=== PATIENT | female | born 1985 | race Caucasian/White ===

== ENCOUNTER 2017-09-02 21:52 | Inpatient (IN) | payer BC ==
--- NOTE | 2017-09-02 23:11 | CT ---
CERVICAL SPINE CT NONCONTRAST: Indication: Post-traumatic pain, injury. FINDINGS: NO fracture or subluxation. Craniocervical junction is intact. There is mild reverse of normal cervic al curvature which may be positional. Correlate clinically. IMPRESSION: No acute osseous abnormality of the cervical spine. POS: [facility]
[2017-09-02] MEDS ORDERED: Lidocaine 1% w/Epinephrine 1:100K 20 ML VIAL ONE (23:43)
[2017-09-03] MEDS ORDERED: Clindamycin/D5W 600 mg/50 ml Premix Bag ONE (00:02)
[2017-09-03 00:47] LABS: #Basophils 0.1 thou/uL (0.0-0.2); #Eosinphils 0.1 thou/uL (0.0-0.7); #Lymphocytes 1.7 thou/uL (1.20-3.40); #Monocytes 0.7 thou/uL (0.11-0.59); #Neutrophils 6.5 thou/uL (1.40-6.50); %Basophils 0.8 % (0.0-1.0); %Eosinophils 1.6 % (0.0-10.0); %Lymphocytes 18.9 % (21.0-51.0); %Monocytes 7.4 % (0.0-10.0); %Neutrophils 71.3 % (42.0-75.0); Hemoglobin 13.7 g/dL (12.0-16.0); Mean Corpuscular HGB CONC 34.3 g/dL (32.0-36.0); Mean Corpuscular Hemoglobin 31.8 pg (27.0-31.0); Mean Corpuscular Volume 92.8 fl (81.0-99.0); Mean Platelet Volume 6.4 fL (7.4-10.4); Platelet Count 363 thou/uL (130-400); RBC Distribution Width 11.1 % (11.5-14.5); Red Blood Cell (RBC) Count 4.31 mill/uL (4.20-5.40)
[2017-09-03 01:07] LABS: Anion Gap 15 mmol/L (10-20); BUN (Urea Nitrogen) 11 mg/dL (7.0-18.7); Calc. Creatinine Clearance 0 mL/min (70-130); Calcium 9.3 mg/dL (7.8-10.44); Carbon Dioxide 22 mmol/L (22-29); Chloride 107 mmol/L (98-107); Estimated GFR-MDRD Greater than 90; Glucose 96 mg/dL (70-105); Potassium 3.9 mmol/L (3.5-5.1); Sodium 140 mmol/L (136-145)
[2017-09-03] MEDS ORDERED: Dextrose 50% Abboject 50 ML SYRINGE SLOW IVP PRN (01:31)
[2017-09-03] MEDS ORDERED: Ondansetron HCl/PF 4 MG/2 ML Vial IVP PRN ×2 (01:31→13:36)
[2017-09-03] MEDS ORDERED: Dextrose 5% in Water 1,000 ML IV PRN (01:31)
[2017-09-03 01:37] VITALS: BMI 19.6
[2017-09-03 01:51] LABS: Magnesium 1.7 mg/dL (1.6-2.6); Phosphorus 2.9 mg/dL (2.3-4.7)
[2017-09-03] MEDS: Morphine 4 MG/ML VIAL SLOW IVP PRN ×3 (02:37→21:17)
[2017-09-03] MEDS: Sodium Chloride 0.9% 1,000 ML IV SCH ×5 (02:40→21:33)
[2017-09-03] MEDS: Acetaminophen 1,000 MG in Premix Bag 1 BAG IVPB SCH ×3 (05:29→18:14)
--- NOTE | 2017-09-03 07:38 | CT ---
NONCONTRAST FACIAL CT: Indication: Post-traumatic injury. Pain. FINDINGS: Mildly displaced fracture of the right body of the mandible is present. Fracture is mildly comminuted and traverses several teeth from the level of the right central incisor to the region of the canine/ pre molar with associated periapical lucencies. Overlying skin laceration is present. Temporomandibul ar joints maintain appropriate alignment. There are absent dentition of the maxilla bilaterally. Nate elate clinically. No displaced nasal bone fracture. Scattered paranasal sinus mucosal thickening. The orbital bryant are intact. Maxillary sinus wall is intact. IMPRESSION: Comminuted fracture of the right mandibular body with associated dental disruption as discussed above . There is overlying soft tissue laceration/contusion omental region. POS: [facility]
[2017-09-03] MEDS: Famotidine/PF 20 mg/2ml Vial SLOW IVP SCH ×2 (08:16→21:06)
[2017-09-03] MEDS: FLUoxetine HCl 10 MG CAP PO SCH (08:16)
[2017-09-03] MEDS: Polyethylene Glycol 3350 17 GM Packet PO SCH (08:16)
[2017-09-03] MEDS: Senokot S 8.6-50 MG TAB PO SCH ×2 (08:16→21:16)
[2017-09-03] MEDS ORDERED: Morphine 4 MG/ML VIAL IV SCH (08:45)
[2017-09-03] MEDS ORDERED: NORETHINDRONE AC ETH ESTRADIOL PO SCH (09:00)
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
[2017-09-03] MEDS ORDERED: Fentanyl 100 MCG/2 ML VIAL ONE ×3 (10:13→10:25)
[2017-09-03] MEDS ORDERED: Oxymetazoline HCl 0.05% ( 15 ML ) ONE (10:13)
[2017-09-03] MEDS ORDERED: HYDROmorphone 0.5 MG/0.5 ML SYRINGE ONE (10:25)
[2017-09-03] MEDS ORDERED: Chlorhexidine Gluconate 15 ML UDCUP SSP ONE (10:39)
[2017-09-03] MEDS ORDERED: Lidocaine 1% w/Epinephrine 1:100K 30 ML VIAL ONE (10:39)
[2017-09-03] MEDS ORDERED: Lidocaine 2% Jelly 5 ML TUBE ONE (11:00)
[2017-09-03] MEDS ORDERED: Promethazine HCl 25 MG/ML VIAL ONE (12:11)
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
[2017-09-03] MEDS ORDERED: Bacitracin Zinc Ointment 30 gm TUBE ONE (12:41)
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
[2017-09-03] MEDS ORDERED: Ketorolac Tromethamine 30 MG/ML VIAL ONE (13:28)
[2017-09-03] MEDS ORDERED: Promethazine HCl 25 MG/ML VIAL IM PRN (13:36)
[2017-09-03] MEDS ORDERED: Promethazine HCl 25 MG/ML VIAL SLOW IVP PRN (13:36)
[2017-09-03] MEDS ORDERED: HYDROmorphone 2 MG/ML VIAL SLOW IVP PRN (13:36)
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
[2017-09-03] MEDS ORDERED: Hydrocodone-Acetamin 15 ML UDCUP PO PRN (14:01)
[2017-09-03] MEDS: Clindamycin/D5W 900 MG in Premix Bag 1 BAG IVPB SCH ×2 (15:09→21:13)
[2017-09-03] MEDS ORDERED: Lidocaine 1% PF 5 ML VIAL ONE (15:39)
[2017-09-03] MEDS ORDERED: PHENYLEPHRINE-NS 100 MCG/ML 10 ML SYRINGE ONE (15:39)
[2017-09-03] MEDS ORDERED: Ondansetron HCl/PF 4 MG/2 ML Vial ONE (15:39)
[2017-09-03] MEDS ORDERED: PROPOFOL 200 MG/20 ML VIAL ONE (15:39)
[2017-09-03] MEDS ORDERED: Succinylcholine Chloride 20 MG/ML 10 ml SYRINGE FS ONE (15:39)
[2017-09-03] MEDS ORDERED: ePHEDrine/0.9% NaCl/PF SYRINGE 50 mg/10 ml ONE (15:39)
[2017-09-03] MEDS ORDERED: Dexamethasone 20 MG/5 ML VIAL ONE (15:39)
[2017-09-03] MEDS: Ibuprofen 100 MG/5 ML UDCUP PO SCH (18:15)
[2017-09-03] MEDS: Chlorhexidine Gluconate 15 ML UDCUP SSP SCH (21:13)
[2017-09-04] MEDS: Ibuprofen 100 MG/5 ML UDCUP PO SCH ×2 (00:37→06:50)
[2017-09-04] MEDS: Acetaminophen 1,000 MG in Premix Bag 1 BAG IVPB SCH ×2 (00:38→06:50)
[2017-09-04] MEDS: Sodium Chloride 0.9% 1,000 ML IV SCH (05:15)
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
[2017-09-04] MEDS: Clindamycin/D5W 900 MG in Premix Bag 1 BAG IVPB SCH (07:40)
[2017-09-04 08:02] VITALS: BP 115/65; TEMP 97.1
[2017-09-04] MEDS: FLUoxetine HCl 10 MG CAP PO SCH (09:31)
[2017-09-04] MEDS: Chlorhexidine Gluconate 15 ML UDCUP SSP SCH (09:31)
[2017-09-04] MEDS: Famotidine/PF 20 mg/2ml Vial SLOW IVP SCH (09:31)
[2017-09-04] MEDS: Senokot S 8.6-50 MG TAB PO SCH (09:39)
[2017-09-04] MEDS: Polyethylene Glycol 3350 17 GM Packet PO SCH (09:39)
--- NOTE | 2017-09-05 14:37 | EKG ---
Test Reason : PRE OP Blood Pressure : / mmHG Vent. Rate : 068 BPM Atrial Rate : 068 BPM P-R Int : 120 ms QRS Dur : 086 ms QT Int : 414 ms P-R-T Axes : 055 046 043 degrees QTc Int : 440 ms Normal sinus rhythm Normal ECG Confirmed by JAYDEN MELENDEZ MD ([id number]), non linear editor MAHESH LYLE ([id number]) on 09/05/2017 2:36:22 PM Referred By: ANDRES MELENDEZ Confirmed By:JAYDEN MELENDEZ MD
== END 2017-09-04 10:35 | disposition home or self-care (01) | DRG 159 ==
LOC: ERS 21:52 → SURG B 23:30
PROVIDERS: ADMIT Surgery; ATTEND Surgery
PROC: 0NSTXZZ Reposition Right Mandible, External Approach (ICD-10-PCS; principal; 2017-09-03)
PROC: 0CTX0Z1 Resection of Lower Tooth, Multiple, Open Approach (ICD-10-PCS; 2017-09-03)
PROC: 0CS Mouth and Throat, Reposition (ICD-10-PCS; 2017-09-03)
DX: S02.601B Fracture of unspecified part of body of right mandible, initial encounter for open fracture (principal); S02.5XXA Fracture of tooth (traumatic), initial encounter for closed fracture; S02.671A Fracture of alveolus of right mandible, initial encounter for closed fracture; K02.9 Dental caries, unspecified; F41.9 Anxiety disorder, unspecified
CPT/HCPCS: 70486; 72125; 76377; 80048; 83735; 84100; 85025; 86850; 86900; 86901; 93005; J0131; J1100; J1170; J1885; J2001; J2270; J2405; J2550; J2704; J3010; J3490

== ENCOUNTER 2019-02-19 19:30 | Inpatient (IN) | payer BC ==
[~2019-02-19 19:30] MED LIST: Bupivacaine 0.25% HCL 30 ML VIAL ONE
[2019-02-19] MEDS: Lactated Ringer's 1,000 ML IV SCH (22:15)
[2019-02-19] MEDS ORDERED: Promethazine HCl 25 MG/ML VIAL IM PRN (22:20)
[2019-02-19] MEDS ORDERED: hydrALAZINE 20 MG/ML VIAL SLOW IVP PRN (22:20)
[2019-02-19] MEDS ORDERED: Butorphanol Tartrate 1 MG/ML VIAL SLOW IVP PRN (22:20)
[2019-02-19] MEDS ORDERED: Ibuprofen 800 MG TAB PO PRN (22:20)
[2019-02-19] MEDS ORDERED: Misoprostol 200 MCG TAB PR PRN (22:20)
[2019-02-19] MEDS ORDERED: HYDROcodone/Acetaminophen 5/325 mg Tablet PO PRN ×2 (22:20)
[2019-02-19] MEDS ORDERED: NS / Oxytocin 40 units/1000ml 1,000 ML IV PRN (22:20)
[2019-02-19] MEDS ORDERED: Ondansetron PF 4 MG/2 ML Vial IVP PRN (22:20)
[2019-02-19] MEDS ORDERED: Diphenoxylate HCl/Atropine Tablet PO PRN ×2 (22:20)
[2019-02-19] MEDS ORDERED: Zolpidem Tartrate 5 MG TAB PO PRN (22:20)
[2019-02-19] MEDS ORDERED: Acetaminophen 500 MG TAB PO PRN (22:20)
[2019-02-19] MEDS ORDERED: Docusate 100 MG CAP PO PRN (22:20)
[2019-02-19] MEDS ORDERED: Lidocaine 1% (PF) 30 ML VIAL SC PRN (22:20)
[2019-02-19 22:34] LABS: Hemoglobin 10.8 g/dL (12.0-16.0); Mean Corpuscular HGB CONC 33.9 g/dL (32.0-36.0); Mean Corpuscular Hemoglobin 29.9 pg (27.0-31.0); Mean Corpuscular Volume 88.4 fL (78.0-98.0); Platelet Count 212 thou/uL (130-400); RBC Distribution Width 12.1 % (11.5-14.5); Red Blood Cell (RBC) Count 3.59 mill/uL (4.20-5.40)
[2019-02-19 22:45] VITALS: BMI 26.3
[2019-02-19] MEDS ORDERED: NS w/ Oxytocin 10 units 500 ML IV SCH ×2 (22:45)
[2019-02-19] MEDS: Misoprostol 100 MCG TAB VAG SCH (23:02)
[2019-02-19 23:13] LABS: Syphilis Antibody Nonreactive (Nonreactive); Syphilis Antibody Index 0.06 S/CO (<1.00 Non-Reactive)
[2019-02-20 01:22] LABS: HBSAg Index 0.15 S/CO (0-0.99); Hep B Surf Ag Non-Reactive S/CO (NonReactive)
[2019-02-20] MEDS: Misoprostol 100 MCG TAB VAG SCH ×3 (02:35→16:41)
[2019-02-20] MEDS ORDERED: Fentanyl 4 mcg/Bup 0.1% Cadd 100 ML ONE (05:43)
[2019-02-20] MEDS: Lactated Ringer's 1,000 ML IV SCH ×2 (06:20→07:50)
[2019-02-20] MEDS ORDERED: Terbutaline Sulfate 1 MG/ML VIAL ONE (07:14)
[2019-02-20] MEDS: NS / Oxytocin 40 units/1000ml 1,000 ML IV SCH ×2 (11:10→13:00)
[2019-02-20] MEDS ORDERED: Bisacodyl 10 MG SUPP PR PRN (12:05)
[2019-02-20] MEDS ORDERED: Zolpidem Tartrate 5 MG TAB PO PRN (12:05)
[2019-02-20] MEDS ORDERED: diphenhydrAMINE 25 MG CAP PO PRN (12:05)
[2019-02-20] MEDS ORDERED: Lanolin Ointment 7 GM TUBE TOP PRN (12:05)
[2019-02-20] MEDS ORDERED: Benzocaine-Menthol 82.5 ML CAN TOP PRN (12:05)
[2019-02-20] MEDS ORDERED: Preparation H Ointment 28 GM TUBE PR PRN (12:05)
[2019-02-20] MEDS ORDERED: Acetaminophen/Codeine 30-300mg Tablet PO PRN (12:05)
[2019-02-20] MEDS ORDERED: Adacel (T-DAP) 0.5 ML SYRINGE IM ONE (12:05)
[2019-02-20] MEDS ORDERED: Milk Of Magnesia 30 ML UDCUP PO PRN (12:05)
[2019-02-20] MEDS ORDERED: Ondansetron PF 4 MG/2 ML Vial IVP PRN (12:05)
[2019-02-20] MEDS ORDERED: Misoprostol 200 MCG TAB VAG PRN (12:05)
[2019-02-20] MEDS ORDERED: hydrALAZINE 20 MG/ML VIAL SLOW IVP PRN (12:05)
[2019-02-20] MEDS: Ibuprofen 800 MG TAB PO SCH ×2 (14:52→21:54)
[2019-02-20] MEDS: Ferrous Sulfate 325 MG TAB PO SCH (17:41)
[2019-02-20] MEDS: Docusate Calcium (SURFAK) 240 MG CAP PO SCH (21:54)
[2019-02-21] MEDS: Ibuprofen 800 MG TAB PO SCH ×3 (06:21→21:28)
[2019-02-21] MEDS: Ferrous Sulfate 325 MG TAB PO SCH ×2 (07:57→15:05)
[2019-02-21] MEDS: Prenatal Vitamin 1 TAB PO SCH (08:57)
[2019-02-21] MEDS: Docusate Calcium (SURFAK) 240 MG CAP PO SCH ×2 (08:57→21:28)
[2019-02-21] MEDS: Acetaminophen/Codeine 30-300mg Tablet PO PRN ×2 (14:08→21:33)
[2019-02-22] MEDS: Ibuprofen 800 MG TAB PO SCH (06:07)
[2019-02-22] MEDS: Prenatal Vitamin 1 TAB PO SCH (08:37)
[2019-02-22] MEDS: Docusate Calcium (SURFAK) 240 MG CAP PO SCH (08:37)
[2019-02-22 09:02] VITALS: BP 124/69; TEMP 97.2
[2019-02-22] MEDS: Ferrous Sulfate 325 MG TAB PO SCH (10:53)
== END 2019-02-22 13:00 | disposition home or self-care (01) | DRG 807 ==
LOC: L&D 21:44 → 3SW 02-20 15:17
PROVIDERS: ADMIT Obstetrics & Gynecology; ATTEND Obstetrics & Gynecology
PROC: 10D07Z6 Extraction of Products of Conception, Vacuum, Via Natural or Artificial Opening (ICD-10-PCS; principal; 2019-02-19)
PROC: 0W8NXZZ Division of Female Perineum, External Approach (ICD-10-PCS; 2019-02-19)
PROC: 3E033VJ Introduction of Other Hormone into Peripheral Vein, Percutaneous Approach (ICD-10-PCS; 2019-02-19)
PROC: 0HQ9XZZ Repair Perineum Skin, External Approach (ICD-10-PCS; 2019-02-19)
DX: O99.89 Other specified diseases and conditions complicating pregnancy, childbirth and the puerperium (principal); Z37.0 Single live birth; O70.9 Perineal laceration during delivery, unspecified; Z3A.39 39 weeks gestation of pregnancy; R00.1 Bradycardia, unspecified
CPT/HCPCS: 36415; 51702; 85027; 86780; 86850; 86900; 86901; 87340; 88307; J2590; J3105; S0020